=== PATIENT | male | born 1980 | race African-American/Black ===

== ENCOUNTER 2024-04-11 04:35 | Emergency (ER) | payer SELFPAY ==
[2024-04-11 04:43] VITALS: BP 135/82; PULSE 86; RESP 18; TEMP 98; BMI 25.1
[2024-04-11] MEDS ORDERED: oxyCODONE HCL 5 MG TABLET ONE (05:02)
[2024-04-11] MEDS: oxyCODONE HCL 5 MG TABLET PO ONE (05:06)
== END 2024-04-11 05:26 | disposition home or self-care (01) ==
LOC: JER 04:35
DX: K08.89 Other specified disorders of teeth and supporting structures (principal)
CPT/HCPCS: 99283-25